=== PATIENT | female | born 1975 | race Two or more races ===

== ENCOUNTER 2023-04-25 22:51 | Emergency (ER) | payer OTHER | END 2023-04-26 00:06 | disposition left against medical advice (07) | LOC: ER 22:51 | DX: Z04.3 Encounter for examination and observation following other accident (principal); Z53.21 Procedure and treatment not carried out due to patient leaving prior to being seen by health care provider; V89.2XXA Person injured in unspecified motor-vehicle accident, traffic, initial encounter; Y93.89 Activity, other specified; Y92.89 Other specified places as the place of occurrence of the external cause; Y99.8 Other external cause status ==